=== PATIENT | male | born 1935 | race Caucasian/White ===

== ENCOUNTER 2019-07-02 11:37 | Inpatient (IN) ==
[2019-07-02 12:46] LABS: INR 1.2; Partial Thromboplastin Time 32.7 SECS (20.8-36.0)
[2019-07-02 12:57] LABS: % Iron Saturation 7.1 % (18-50); Alanine Aminotransferase 16 U/L (16-61); Albumin 3.5 G/DL (3.4-5.0); Alkaline Phosphatase 65 U/L (45-117); Aspartate Amino Transferase 12 U/L (0-37); Bilirubin,Total < 0.39 MG/DL (0.2-1.0); Blood Urea Nitrogen 27 MG/DL (7-18); Calcium 9.2 MG/DL (8.5-10.1); Ferritin 21.4 ng/ml (26-388); Glucose 128 MG/DL (74-106); Iron 26 UG/DL (65-175); Iron Binding Capacity 365 UG/DL (250-450); Osmolality,Calculated 287.3 MOS/KG (273-304); Total Protein 7.1 G/DL (6.4-8.3)
[2019-07-02] MEDS ORDERED: SODIUM CHLORIDE 0.9% 1,000 ML IV PRN ×2 (14:24→14:32)
[2019-07-02] MEDS ORDERED: ONDANSETRON 4 MG/2 ML VIAL IV PRN (14:24)
[2019-07-02] MEDS ORDERED: BISACODYL 5 MG TABLET PO PRN (14:24)
[2019-07-02] MEDS ORDERED: ACETAMINOPHEN 325 MG TABLET PO PRN (14:24)
[2019-07-02] MEDS ORDERED: DOCUSATE SODIUM 100 MG CAPSULE PO PRN (14:24)
[2019-07-02] MEDS ORDERED: ALBUTEROL 2.5 MG/3 ML NEB RESP TX PRN (15:39)
[2019-07-02] MEDS ORDERED: DEXTROSE 10% 25 GM/250 ML BAG IV PRN (15:39)
[2019-07-02] MEDS ORDERED: GLUCAGON 1 MG VIAL IM PRN (15:39)
[2019-07-02 15:45] LABS: Basophils # 0.1 10*3/uL (0.0-0.2); Eosinophils # 0.4 10*3/uL (0.0-0.87); Eosinophils % 4.1 % (0.00-10.9); Hematocrit 25.5 VOL% (42.0-52.0); Immature Granulocytes % 0.5 %; Immature Granulocytes Absolute 0.05 #; Lymphocytes # 2.1 10*3/uL (1.4-4.0); Lymphocytes % 20.9 % (21.2-54.2); Mean Corpuscular HGB Conc 31.4 GM/DL (32-36); Mean Corpuscular Volume 97.7 FL (87-102); Mean Platelet Volume 9.2 FL (9.6-12.0); Monocytes % 11.2 % (1.7-12.7); Neutrophils % 62.3 % (38.7-73.9); Platelet Count 312 T/CUMM (130-400); Red Blood Count 2.61 MC/CUMM (3.8-5.5); Red Cell Distribution Width 13.4 % (9.3-17.3); White Blood Count 9.9 T/CUMM (4-12)
[2019-07-02] MEDS ORDERED: SODIUM CHLORIDE 0.45% 1,000 ML IV SCH (17:00)
[2019-07-02] MEDS: INSULIN REGULAR 100 UNIT/ML SUBCUT SCH ×2 (17:14→21:47)
[2019-07-02] MEDS: CARVEDILOL 6.25 MG TABLET PO SCH (17:56)
[2019-07-02] MEDS: amLODIPine 10 MG TABLET PO SCH (18:15)
[2019-07-02 20:14] LABS: Hematocrit 26.4 VOL% (42.0-52.0); Hemoglobin 8.4 GM/DL (14.0-18.0)
[2019-07-02] MEDS: FERROUS SULFATE 325 MG TABLET PO SCH (21:45)
[2019-07-02] MEDS: SIMVASTATIN 10 MG TABLET PO SCH (21:46)
[2019-07-02] MEDS: PANTOPRAZOLE 40 MG VIAL IV SCH (21:48)
[2019-07-03 05:30] LABS: Basophils # 0.1 10*3/uL (0.0-0.2); Basophils % 0.8 % (0.0-0.8); Eosinophils # 0.5 10*3/uL (0.0-0.87); Eosinophils % 4.3 % (0.00-10.9); Hematocrit 25.4 VOL% (42.0-52.0); Hemoglobin 8.1 GM/DL (14.0-18.0); Immature Granulocytes % 0.5 %; Immature Granulocytes Absolute 0.05 #; Lymphocytes # 1.9 10*3/uL (1.4-4.0); Lymphocytes % 17.9 % (21.2-54.2); Mean Corpuscular HGB Conc 31.9 GM/DL (32-36); Mean Corpuscular Volume 93.7 FL (87-102); Mean Platelet Volume 9.8 FL (9.6-12.0); Monocytes % 11.7 % (1.7-12.7); Neutrophils % 64.8 % (38.7-73.9); Platelet Count 308 T/CUMM (130-400); Red Blood Count 2.71 MC/CUMM (3.8-5.5); Red Cell Distribution Width 14.6 % (9.3-17.3); White Blood Count 10.6 T/CUMM (4-12)
[2019-07-03] MEDS: ACETAMINOPHEN 325 MG TABLET PO PRN ×3 (06:24→19:13)
[2019-07-03] MEDS ORDERED: SODIUM CHLORIDE 0.9% 1,000 ML IV PRN ×2 (07:45→16:13)
[2019-07-03] MEDS: INSULIN REGULAR 100 UNIT/ML SUBCUT SCH ×4 (09:05→22:45)
[2019-07-03] MEDS: amLODIPine 10 MG TABLET PO SCH (09:34)
[2019-07-03] MEDS: CARVEDILOL 6.25 MG TABLET PO SCH ×2 (09:34→17:25)
[2019-07-03] MEDS: PANTOPRAZOLE 40 MG VIAL IV SCH ×2 (09:35→21:05)
[2019-07-03 11:35] LABS: Calcium 9.2 MG/DL (8.5-10.1); Osmolality,Calculated 280.5 MOS/KG (273-304)
[2019-07-03] MEDS ORDERED: LOSARTAN 50 MG TABLET PO SCH (12:00)
[2019-07-03] MEDS ORDERED: MAGNESIUM SULF RIDER 2 GM in PREMIX 1 EACH IV ONE (12:17)
[2019-07-03] MEDS ORDERED: SODIUM CHLORIDE 0.45% 500 ML IV ONE (12:50)
[2019-07-03] MEDS ORDERED: LORazepam 0.5 MG TABLET PO PRN (13:42)
[2019-07-03] MEDS: SERTRALINE 50 MG TABLET PO SCH (14:27)
[2019-07-03] MEDS: CHOLECALCIFEROL 5,000 UNIT TABLET PO SCH (14:27)
[2019-07-03] MEDS: SIMVASTATIN 10 MG TABLET PO SCH (21:05)
[2019-07-04 06:03] LABS: Basophils # 0.1 10*3/uL (0.0-0.2); Basophils % 0.7 % (0.0-0.8); Eosinophils # 0.3 10*3/uL (0.0-0.87); Eosinophils % 2.5 % (0.00-10.9); Hematocrit 27.1 VOL% (42.0-52.0); Hemoglobin 8.8 GM/DL (14.0-18.0); Immature Granulocytes % 0.4 %; Immature Granulocytes Absolute 0.05 #; Lymphocytes % 8.7 % (21.2-54.2); Mean Corpuscular HGB Conc 32.5 GM/DL (32-36); Mean Corpuscular Volume 92.8 FL (87-102); Mean Platelet Volume 9.9 FL (9.6-12.0); Monocytes % 11.8 % (1.7-12.7); Neutrophils % 75.9 % (38.7-73.9); Platelet Count 289 T/CUMM (130-400); Red Blood Count 2.92 MC/CUMM (3.8-5.5); Red Cell Distribution Width 14.1 % (9.3-17.3); White Blood Count 11.4 T/CUMM (4-12)
[2019-07-04 06:28] LABS: Calcium 9.2 MG/DL (8.5-10.1); Osmolality,Calculated 278.5 MOS/KG (273-304)
[2019-07-04] MEDS: INSULIN REGULAR 100 UNIT/ML SUBCUT SCH ×4 (08:39→23:01)
[2019-07-04] MEDS: amLODIPine 10 MG TABLET PO SCH (11:44)
[2019-07-04] MEDS: PANTOPRAZOLE 40 MG VIAL IV SCH ×2 (11:44→20:11)
[2019-07-04] MEDS: CARVEDILOL 6.25 MG TABLET PO SCH ×2 (11:44→16:32)
[2019-07-04] MEDS ORDERED: PROPOFOL 200 MG/20 ML VIAL IV ONE (12:01)
[2019-07-04] MEDS: ACETAMINOPHEN 325 MG TABLET PO PRN ×2 (12:22→17:04)
[2019-07-04] MEDS: SERTRALINE 50 MG TABLET PO SCH (13:07)
[2019-07-04] MEDS: CHOLECALCIFEROL 5,000 UNIT TABLET PO SCH (13:07)
[2019-07-04 16:31] LABS: Hematocrit 26.3 VOL% (42.0-52.0); Hemoglobin 8.5 GM/DL (14.0-18.0)
[2019-07-04] MEDS ORDERED: SODIUM CHLORIDE 0.9% 1,000 ML IV PRN (16:46)
[2019-07-04] MEDS: ALUMINUM/MAGNES/SIMETH MAX STR 30 ML UDCUP PO PRN (17:19)
[2019-07-04] MEDS: SIMVASTATIN 10 MG TABLET PO SCH (20:09)
[2019-07-05] MEDS: ACETAMINOPHEN 325 MG TABLET PO PRN ×2 (02:23→08:48)
[2019-07-05 03:24] LABS: Basophils # 0.1 10*3/uL (0.0-0.2); Basophils % 0.7 % (0.0-0.8); Eosinophils # 0.3 10*3/uL (0.0-0.87); Eosinophils % 2.7 % (0.00-10.9); Hematocrit 30.2 VOL% (42.0-52.0); Hemoglobin 9.9 GM/DL (14.0-18.0); Immature Granulocytes % 0.5 %; Immature Granulocytes Absolute 0.06 #; Lymphocytes % 9.4 % (21.2-54.2); Mean Corpuscular HGB Conc 32.8 GM/DL (32-36); Mean Corpuscular Volume 92.9 FL (87-102); Mean Platelet Volume 9.3 FL (9.6-12.0); Monocytes % 15.7 % (1.7-12.7); Platelet Count 234 T/CUMM (130-400); Red Blood Count 3.25 MC/CUMM (3.8-5.5); Red Cell Distribution Width 13.8 % (9.3-17.3)
[2019-07-05 03:35] LABS: Calcium 9.1 MG/DL (8.5-10.1); Osmolality,Calculated 278.7 MOS/KG (273-304)
[2019-07-05 04:05] LABS: Eosinophils 2 % (0-10); Lymphocytes 7 % (20-55); Segmented Neutrophils 81 % (50-85); Total Cells Counted 100
[2019-07-05 04:06] LABS: Anisocytosis 1+; Platelet Estimate Normal
[2019-07-05] MEDS: INSULIN REGULAR 100 UNIT/ML SUBCUT SCH ×4 (08:45→22:01)
[2019-07-05] MEDS: FERROUS SULFATE 325 MG TABLET PO SCH (08:46)
[2019-07-05] MEDS: amLODIPine 10 MG TABLET PO SCH (08:46)
[2019-07-05] MEDS: PANTOPRAZOLE 40 MG VIAL IV SCH ×2 (08:46→21:58)
[2019-07-05] MEDS: CARVEDILOL 6.25 MG TABLET PO SCH ×2 (08:46→17:38)
[2019-07-05] MEDS: CHOLECALCIFEROL 5,000 UNIT TABLET PO SCH (12:54)
[2019-07-05] MEDS: BISACODYL 5 MG TABLET PO SCH ×2 (12:54→20:36)
[2019-07-05] MEDS: SERTRALINE 50 MG TABLET PO SCH (12:55)
[2019-07-05] MEDS: ALUMINUM/MAGNES/SIMETH MAX STR 30 ML UDCUP PO PRN (17:15)
[2019-07-05] MEDS ORDERED: POLYETHYLENE GLYCOL POWDER 255 GM BOTTLE PO ONE ×2 (18:00→19:09)
[2019-07-05] MEDS ORDERED: MAGNESIUM CITRATE 300 ML BOTTLE PO ONE (21:00)
[2019-07-05] MEDS: SIMVASTATIN 10 MG TABLET PO SCH (21:58)
[2019-07-06] MEDS: BISACODYL 5 MG TABLET PO SCH (03:38)
[2019-07-06] MEDS: ACETAMINOPHEN 325 MG TABLET PO PRN (03:46)
[2019-07-06 05:35] LABS: Basophils # 0.1 10*3/uL (0.0-0.2); Basophils % 0.6 % (0.0-0.8); Eosinophils # 0.3 10*3/uL (0.0-0.87); Eosinophils % 2.3 % (0.00-10.9); Hematocrit 31.8 VOL% (42.0-52.0); Hemoglobin 10.1 GM/DL (14.0-18.0); Immature Granulocytes % 0.5 %; Immature Granulocytes Absolute 0.06 #; Lymphocytes # 1.1 10*3/uL (1.4-4.0); Lymphocytes % 8.6 % (21.2-54.2); Mean Corpuscular HGB Conc 31.8 GM/DL (32-36); Mean Corpuscular Volume 94.6 FL (87-102); Monocytes % 15.1 % (1.7-12.7); Neutrophils % 72.9 % (38.7-73.9); Platelet Count 261 T/CUMM (130-400); Red Blood Count 3.36 MC/CUMM (3.8-5.5); Red Cell Distribution Width 14.1 % (9.3-17.3); White Blood Count 12.4 T/CUMM (4-12)
[2019-07-06 06:17] LABS: Calcium 9.4 MG/DL (8.5-10.1); Osmolality,Calculated 284.3 MOS/KG (273-304)
[2019-07-06] MEDS ORDERED: LACTATED RINGERS 1,000 ML IV SCH (06:30)
[2019-07-06] MEDS: INSULIN REGULAR 100 UNIT/ML SUBCUT SCH ×2 (08:48→11:38)
[2019-07-06] MEDS: CARVEDILOL 6.25 MG TABLET PO SCH (08:50)
[2019-07-06] MEDS: amLODIPine 10 MG TABLET PO SCH (08:50)
[2019-07-06] MEDS: PANTOPRAZOLE 40 MG VIAL IV SCH (08:50)
[2019-07-06] MEDS ORDERED: PROPOFOL 200 MG/20 ML VIAL IV ONE (09:00)
[2019-07-06] MEDS ORDERED: LIDOCAINE 2% 5 ML VIAL ONE (09:00)
[2019-07-06] MEDS ORDERED: PHENYLEPHRINE 1 MG/10 ML SYRINGE IV ONE (09:00)
[2019-07-06 11:47] VITALS: BP 128/75
== END 2019-07-06 12:47 | disposition home health service (06) | DRG 813 ==
LOC: N.ED 11:37 → N.EDINP 14:24 → SUATTDRO 14:24 → N.EDINP 15:10 → N.4E 15:18
PROVIDERS: ADMIT Internal Medicine; ATTEND Internal Medicine Geriatric Medicine

== ENCOUNTER 2022-09-25 10:51 | Inpatient (IN) ==
[2022-09-25] MEDS ORDERED: SODIUM CHLORIDE 0.9% 1,000 ML IV SCH (12:00)
[2022-09-25 12:33] LABS: Basophils # 0.1 10*3/uL (0.0-0.2); Basophils % 1.1 % (0.0-0.8); Eosinophils # 0.2 10*3/uL (0.0-0.87); Hematocrit 40.5 VOL% (42.0-52.0); Hemoglobin 13.4 GM/DL (14.0-18.0); Immature Granulocytes % 0.4 %; Immature Granulocytes Absolute 0.03 #; Lymphocytes # 0.8 10*3/uL (1.4-4.0); Lymphocytes % 10.3 % (21.2-54.2); Mean Corpuscular HGB Conc 33.1 GM/DL (32-36); Mean Corpuscular Volume 102.8 FL (87-102); Mean Platelet Volume 9.7 FL (9.6-12.0); Monocytes # 0.9 10*3/uL (0.11-0.8); Neutrophils % 73.2 % (38.7-73.9); Platelet Count 264 T/CUMM (130-400); Red Blood Count 3.94 MC/CUMM (3.8-5.5); Red Cell Distribution Width 13.9 % (9.3-17.3); White Blood Count 7.3 T/CUMM (4-12)
[2022-09-25 12:36] LABS: Bilirubin,Total 1.1 MG/DL (0.20-1.00); Calcium 10.5 MG/DL (8.5-10.1); Osmolality,Calculated 279.7 MOS/KG (273-304); Potassium 4.6 MMOL/L (3.5-5.1); Total Protein 7.5 G/DL (6.4-8.2)
[2022-09-25 12:45] LABS: INR 1.1; PT Patient Result 11.6 SECS (10.1-12.1); Partial Thromboplastin Time 26.9 SECS (23.7-32.9)
[2022-09-25] MEDS ORDERED: DOCUSATE SODIUM 100 MG CAPSULE PO PRN (13:07)
[2022-09-25] MEDS ORDERED: GLUCAGON 1 MG VIAL IM PRN (13:07)
[2022-09-25] MEDS ORDERED: ONDANSETRON 4 MG/2 ML VIAL IV PRN (13:07)
[2022-09-25] MEDS ORDERED: DEXTROSE 10% 250 ML BAG IV PRN (13:07)
[2022-09-25] MEDS: ENOXAPARIN 40 MG/0.4 ML SYRINGE SUBCUT SCH (15:08)
[2022-09-25] MEDS: ASPIRIN 325 MG TABLET PO SCH (15:09)
[2022-09-25] MEDS: hydrALAZINE 20 MG/1 ML VIAL IV PRN (15:11)
[2022-09-25 16:42] LABS: Bilirubin,Urine Negative (Negative); Blood, Urine Negative (Negative); Glucose,Urine (UA) Negative (Negative); Ketones,Urine Negative (Negative); Nitrite,Urine Negative (Negative); Protein,Urine Negative (Negative); Urine Appearance Clear (Clear); Urine Color Yellow (Yellow); Urine Specific Gravity 1.015 (1.001-1.035); Urine Urobilinogen 0.2 eU/dL (<2.0)
[2022-09-25 16:47] LABS: Mucus,Urine Occasional /LPF (Occasional); RBC,Urine 2 /HPF (0-4); Squamous Epithelial Cell,Urine Occasional /HPF (0-10)
[2022-09-25] MEDS: ACETAMINOPHEN 325 MG TABLET PO PRN (17:46)
[2022-09-25] MEDS: LACTATED RINGERS 1,000 ML IV SCH (17:49)
[2022-09-25] MEDS: INSULIN LISPRO 100 UNIT/ML SUBCUT SCH ×2 (17:58→20:49)
[2022-09-25] MEDS ORDERED: SIMVASTATIN 10 MG TABLET PO SCH (21:00)
[2022-09-26] MEDS: hydrALAZINE 20 MG/1 ML VIAL IV PRN (00:08)
[2022-09-26] MEDS: LACTATED RINGERS 1,000 ML IV SCH ×4 (02:29→20:33)
[2022-09-26 05:17] LABS: Basophils # 0.1 10*3/uL (0.0-0.2); Basophils % 0.8 % (0.0-0.8); Eosinophils # 0.3 10*3/uL (0.0-0.87); Eosinophils % 3.9 % (0.00-10.9); Hematocrit 43.1 VOL% (42.0-52.0); Hemoglobin 14.5 GM/DL (14.0-18.0); Immature Granulocytes % 0.4 %; Immature Granulocytes Absolute 0.03 #; Lymphocytes # 0.6 10*3/uL (1.4-4.0); Lymphocytes % 7.5 % (21.2-54.2); Mean Corpuscular HGB Conc 33.6 GM/DL (32-36); Mean Corpuscular Volume 102.1 FL (87-102); Mean Platelet Volume 9.5 FL (9.6-12.0); Monocytes # 1.1 10*3/uL (0.11-0.8); Monocytes % 13.6 % (1.7-12.7); Neutrophils % 73.8 % (38.7-73.9); Platelet Count 269 T/CUMM (130-400); Red Blood Count 4.22 MC/CUMM (3.8-5.5); Red Cell Distribution Width 13.7 % (9.3-17.3); White Blood Count 8.3 T/CUMM (4-12)
[2022-09-26 05:39] LABS: Calcium 9.6 MG/DL (8.5-10.1); Osmolality,Calculated 281.4 MOS/KG (273-304); Potassium 3.7 MMOL/L (3.5-5.1); Risk Ratio 1.94; VLDL Cholesterol 21.2 MG/DL
[2022-09-26] MEDS ORDERED: PANTOPRAZOLE 40 MG TABLET PO SCH (09:00)
[2022-09-26] MEDS: ACETAMINOPHEN 325 MG TABLET PO PRN ×3 (09:37→23:02)
[2022-09-26] MEDS ORDERED: MAGNESIUM SULF RIDER 2 GM/50 ML PREMIX IV ONE (10:38)
[2022-09-26] MEDS: INSULIN LISPRO 100 UNIT/ML SUBCUT SCH ×4 (10:43→21:45)
[2022-09-26] MEDS: ASPIRIN 325 MG TABLET PO SCH ×2 (11:20→11:22)
[2022-09-26] MEDS: carvediloL 6.25 MG TABLET PO SCH ×2 (13:15→21:44)
[2022-09-26] MEDS: ENOXAPARIN 40 MG/0.4 ML SYRINGE SUBCUT SCH (13:59)
[2022-09-26] MEDS: FERROUS SULFATE 325 MG TABLET PO SCH ×2 (16:23→21:44)
[2022-09-26] MEDS ORDERED: traZODone 50 MG TABLET PO SCH (21:00)
[2022-09-26] MEDS ORDERED: LATANOPROST 0.005% OPH SOLN 2.5 ML BOTTLE BOTH EYES SCH (21:00)
[2022-09-27 04:19] VITALS: BP 139/95
[2022-09-27] MEDS: LACTATED RINGERS 1,000 ML IV SCH (04:47)
[2022-09-27 05:54] LABS: Basophils # 0.1 10*3/uL (0.0-0.2); Basophils % 1.1 % (0.0-0.8); Eosinophils # 0.5 10*3/uL (0.0-0.87); Eosinophils % 6.8 % (0.00-10.9); Hemoglobin 13.3 GM/DL (14.0-18.0); Immature Granulocytes % 0.4 %; Immature Granulocytes Absolute 0.03 #; Lymphocytes # 0.8 10*3/uL (1.4-4.0); Lymphocytes % 11.6 % (21.2-54.2); Mean Corpuscular HGB Conc 33.3 GM/DL (32-36); Mean Corpuscular Volume 102.8 FL (87-102); Mean Platelet Volume 10.1 FL (9.6-12.0); Monocytes # 1.1 10*3/uL (0.11-0.8); Monocytes % 15.6 % (1.7-12.7); Neutrophils % 64.5 % (38.7-73.9); Platelet Count 259 T/CUMM (130-400); Red Blood Count 3.89 MC/CUMM (3.8-5.5); White Blood Count 7.2 T/CUMM (4-12)
[2022-09-27 06:15] LABS: Albumin 3.1 G/DL (3.4-5.0); Bilirubin,Total 0.7 MG/DL (0.20-1.00); Calcium 9.5 MG/DL (8.5-10.1); Osmolality,Calculated 282.4 MOS/KG (273-304); Potassium 3.6 MMOL/L (3.5-5.1); Total Protein 6.3 G/DL (6.4-8.2)
[2022-09-27 06:24] LABS: Anisocytosis 1+; Band Neutrophils 3 % (0-10); Eosinophils 8 % (0-10); Lymphocytes 11 % (20-55); Macrocytosis 1+; Platelet Estimate Normal; Total Cells Counted 100
[2022-09-27] MEDS ORDERED: SERTRALINE 50 MG TABLET PO SCH (09:00)
[2022-09-27] MEDS ORDERED: ASPIRIN EC 81 MG TABLET PO SCH (09:00)
[2022-09-27] MEDS ORDERED: TAMSULOSIN 0.4 MG CAPSULE PO SCH (09:00)
[2022-09-27] MEDS ORDERED: FENOFIBRATE 48 MG TABLET PO SCH (09:00)
[2022-09-27 20:08] LABS: Folate > 24.00 NG/ML (5.38-24.0); Vitamin B12 1307 PG/ML (211-911)
[2022-09-27] MEDS ORDERED: SIMVASTATIN 20 MG TABLET PO SCH (21:00)
[2022-10-03] MEDS ORDERED: CYANOCOBALAMIN 1000 MCG/1 ML VIAL IM SCH (09:00)
== END 2022-09-27 08:06 | disposition expired | DRG 69 ==
LOC: N.ED 10:51 → N.EDINP 13:07 → N.TELEN 15:51
PROVIDERS: ADMIT Internal Medicine; ATTEND Internal Medicine